=== PATIENT | male | born 1950 | race Two or more races ===

== ENCOUNTER 2024-03-23 13:43 | Inpatient (IN) | payer OTHER ==
[~2024-03-23] VITALS: Ht 152.4 cm; Wt 72.6 kg
[2024-03-23] MEDS ORDERED: ZESTRIL40 M1 PO (14:29)
[2024-03-23] MEDS ORDERED: AMLODIPINE-OLM1 EAC2 PO (14:29)
[2024-03-23] MEDS ORDERED: TAMS0.4C PO (14:30)
[2024-03-23] MEDS ORDERED: CHILDREN'S ASPI81 MG PO (14:30)
[2024-03-23] MEDS ORDERED: ALDACTONE25 MG PO (14:31)
--- NOTE | 2024-03-23 14:31 | NUR ---
PTE ALERTA Y ORIENTADO X3 REFIERE SER PTE DEL DR. STEW SMITH Y QUE EL MISMO LO ENVIA A KAMRAN DE EMERGENCIAS POR TENER SODIO EN [address] Y SE UBICA.
[2024-03-23] MEDS ORDERED: CRESTOR40 MG PO (14:32)
[2024-03-23] MEDS ORDERED: LANTUS SOL100 UNIT/1 (14:35)
[2024-03-23] MEDS ORDERED: HUMALOG100 UNIT/2 (14:35)
[2024-03-23] MEDS ORDERED: 0.9 % SODIUM CHLORIDE 500 ML IV ONE (15:15)
--- NOTE | 2024-03-23 15:46 | NUR ---
PTE ALERTA Y ORIENTADO X3, RN GALLITO ORIENTA SOBRE TX MEDICO Y REFIERE ACEPTAR. CANALIZA Y COLECTA MUESTRAS DE LAB BAJO MEDIDAS ASEPTICAS. HACE ENTREGA DE ENVASE PARA U/A Y REALIZA EKG WENDI ORDEN MEDICA
[2024-03-23 16:07] LABS: HEMATOCRIT 36.8 % (39.0-48.0); HEMOGLOBIN 12.7 g/dL (13-16.00); MEAN CELL VOLUME 78.1 fL (80.0-100.00); MEAN CORPUSCULAR HEMOGLOBIN 27.1 pg (27.00-32.0); MEAN CORPUSCULAR HGB CONC 34.6 g/dl (32.0-36.0); PLATELET COUNT 273 K/uL (150-450); RED CELL DISTRIBUTION WIDTH 13.5 % (11.5-14.5)
[2024-03-23 16:24] LABS: ALBUMIN 4.2 gm/dL (3.4-5.0); BILIRUBIN TOTAL 0.78 mg/dL (0.3-1.2); CALCIUM 9.6 mg/dL (8.5-10.1); CREATININE SERUM 1.77 mg/dL (0.70-1.30); GFR 38.11; GLOBULINA 3.2 G/DL (2.4-3.5); MAGNESIUM 1.8 mg/dL (1.8-2.4); PHOSPHOROUS 3.5 mg/dL (2.5-4.9); POTASSIUM 5.27 mEq/L (3.5-5.1); TOTAL PROTEIN 7.4 gm/dL (6.4-8.2)
[2024-03-23 16:30] LABS: URINE APPEARANCE Clear; URINE BILIRRUBIN Negative (NEGATIVE); URINE BLOOD Negative; URINE COLOR Yellow; URINE GLUCOSE Negative (NEGATIVE); URINE KETONE Trace (NEGATIVE); URINE LEUKOCYTE Negative; URINE NITRATE Negative; URINE PROTEIN Negative (NEGATIVE); URINE UROBILINOGEN 0.2 E.U./dl
[2024-03-23 16:34] LABS: URINE BACTERIA 6.2 uL (0.0-1933); URINE WBC 8.1 uL (0.0-23.2)
[2024-03-23 16:40] LABS: URINE EPITHELIAL CELLS 0.3 uL (0.0-38.8); URINE RBC 0.9 uL (0.0-20.8)
[2024-03-23] MEDS ORDERED: 0.9 % SODIUM CHLORIDE 1,000 ML IV SCH (21:45)
[2024-03-23] MEDS ORDERED: SODIUM POLYSTYRENE SULFONATE 15 G/4 TSP TSP PO SCH (22:13)
[2024-03-23] MEDS ORDERED: ACETAMINOPHEN 500 MG GEL..CAP PO PRN (22:15)
[2024-03-23] MEDS ORDERED: ONDANSETRON HCL 4 MG in 0.9 % SODIUM CHLORIDE 50 ML IV PRN (22:15)
[2024-03-23] MEDS ORDERED: INSULIN LISPRO 1,000 UNIT/10 ML UNITS SUBCUTANEO PRN (22:15)
[2024-03-23] MEDS ORDERED: DEXTROSE 50 % IN WATER 0.5 G/ML DISP.SYRIN IV PRN (22:15)
[2024-03-23 23:32] LABS: INR 1.04; PARTIAL THROMBOPLASTIN TIME 29.9 SECONDS (22.0-34.0); PROTHROMBIN TIME 11.3 SECONDS (9.0-11.5)
[2024-03-23 23:47] LABS: MAGNESIUM 1.6 mg/dL (1.8-2.4); PHOSPHOROUS 3.6 mg/dL (2.5-4.9)
[2024-03-24 00:58] VITALS: BP 139/83; O2SAT 99
[2024-03-24 07:05] LABS: CALCIUM 9.9 mg/dL (8.5-10.1); CREATININE SERUM 1.63 mg/dL (0.70-1.30); GFR 41.91; POTASSIUM 5.23 mEq/L (3.5-5.1); URIC ACID 4.1 mg/dL (3.5-8.5)
[2024-03-24 07:25] LABS: TSH 1.01 uIU/mL (0.358-3.74)
[2024-03-24 08:10] VITALS: BP 130/80; O2SAT 98
[2024-03-24] MEDS ORDERED: TAMSULOSIN HCL 0.4 MG CAP PO SCH (09:00)
[2024-03-24] MEDS ORDERED: ATORVASTATIN CALCIUM 40 MG TABLET PO SCH (09:00)
[2024-03-24] MEDS ORDERED: LISINOPRIL 40 MG TABLET PO SCH (09:00)
[2024-03-24] MEDS ORDERED: AMLODIPINE BESYLATE 5 MG TABLET PO SCH (09:00)
[2024-03-24 16:17] VITALS: BP 134/80; O2SAT 99
[2024-03-24] MEDS ORDERED: INSULIN GLARGINE,HUM.REC.ANLOG 1,000 UNITS/10 ML UNITS SUBCUTANEO SCH (17:00)
[2024-03-24 17:18] VITALS: BP 128/72
[2024-03-24 17:31] VITALS: BP 128/67
[2024-03-25 02:25] VITALS: BP 127/72
[2024-03-25 08:23] VITALS: BP 144/72; O2SAT 99
[2024-03-25] MEDS ORDERED: DOXAZOSIN MESYLATE 4 MG TABLET PO SCH (09:00)
[2024-03-25] MEDS ORDERED: PANTOPRAZOLE SODIUM 40 MG TABLET.DR PO SCH (09:00)
[2024-03-25] MEDS ORDERED: AMLODIPINE BESYLATE 5 MG TABLET PO SCH (09:00)
[2024-03-25] MEDS ORDERED: MAGNESIUM SULFATE/D5W 1GM/100ML PIGGYBAG IV NR (10:37)
[2024-03-25 15:12] LABS: CALCIUM 8.9 mg/dL (8.5-10.1); CREATININE SERUM 1.91 mg/dL (0.70-1.30); GFR 34.91; POTASSIUM 3.92 mEq/L (3.5-5.1)
[2024-03-25 18:10] VITALS: BP 157/80
[2024-03-25 19:29] LABS: CREATININE SERUM 1.77 mg/dL (0.8-1.3)
[2024-03-25] MEDS ORDERED: INSULIN GLARGINE,HUM.REC.ANLOG 1,000 UNITS/10 ML UNITS SUBCUTANEO STA (22:02)
[2024-03-26 01:41] VITALS: BP 114/55; O2SAT 97
[2024-03-26 07:19] LABS: ALBUMIN 3.1 gm/dL (3.4-5.0); CALCIUM 8.6 mg/dL (8.5-10.1); CREATININE SERUM 1.47 mg/dL (0.70-1.30); GFR 47.22; PHOSPHOROUS 3.1 mg/dL (2.5-4.9); POTASSIUM 4.11 mEq/L (3.5-5.1)
[2024-03-26] MEDS ORDERED: INSULIN LISPRO 1,000 UNIT/10 ML UNITS SUBCUTANEO SCH (08:00)
[2024-03-26] MEDS ORDERED: AMLODIPINE BESYL5 MG PO (08:23)
[2024-03-26] MEDS ORDERED: DOXAZOSIN MESYLA4 MG PO (08:24)
[2024-03-26] MEDS ORDERED: CRESTOR40 MG PO (08:24)
[2024-03-26] MEDS ORDERED: CHILDREN'S ASPI81 MG PO (08:25)
[2024-03-26] MEDS ORDERED: PANTOPRAZOLE SO40 MG PO (08:25)
[2024-03-26 09:21] VITALS: BP 138/71; O2SAT 96
[2024-03-26] MEDS ORDERED: INSULIN GLARGINE,HUM.REC.ANLOG 1,000 UNITS/10 ML UNITS SUBCUTANEO SCH (21:00)
== END 2024-03-26 11:34 | disposition home or self-care (01) | DRG 683 ==
LOC: ER 13:44 → SEC-K 22:13 → MEDI 03-24 14:24
PROVIDERS: General Practice; Nurse Practitioner Family; Specialist/Technologist, Other Nephrology; ADMIT Internal Medicine; ATTEND Internal Medicine
PROC: BT43ZZZ Ultrasonography of Bilateral Kidneys (ICD-10-PCS; principal; 2024-03-25)
DX: N17.9 Acute kidney failure, unspecified (principal); E87.1 Hypo-osmolality and hyponatremia; E87.5 Hyperkalemia; I25.10 Atherosclerotic heart disease of native coronary artery without angina pectoris; E11.9 Type 2 diabetes mellitus without complications; Z79.4 Long term (current) use of insulin; E78.5 Hyperlipidemia, unspecified; I12.9 Hypertensive chronic kidney disease with stage 1 through stage 4 chronic kidney disease, or unspecified chronic kidney disease; E11.22 Type 2 diabetes mellitus with diabetic chronic kidney disease; N18.9 Chronic kidney disease, unspecified

== ENCOUNTER 2024-10-22 21:21 | Emergency (ER) | payer OTHER ==
[~2024-10-22] VITALS: Ht 177.8 cm; Wt 74.4 kg
[~2024-10-22 21:21] MED LIST: ALDACTONE25 MG PO; AMLODIPINE BESYL5 MG PO; AMLODIPINE-OLM1 EAC2 PO; CHILDREN'S ASPI81 MG PO; CRESTOR40 MG PO; DOXAZOSIN MESYLA4 MG PO; HUMALOG100 UNIT/2; LANTUS SOL100 UNIT/1; PANTOPRAZOLE SO40 MG PO; TAMS0.4C PO; ZESTRIL40 M1 PO
[2024-10-22 22:46] VITALS: BP 121/71; O2SAT 99
[2024-10-23] MEDS ORDERED: RINGERS SOLUTION,LACTATED 500 ML IV STA (03:10)
[2024-10-23] MEDS ORDERED: INSULIN REGULAR, HUMAN 1,000 UNIT/10 ML UNITS IV STA (03:11)
[2024-10-23] MEDS ORDERED: INSULIN REGULAR, HUMAN 1,000 UNIT/10 ML UNITS SUBCUTANEO STA (03:12)
[2024-10-23 03:45] LABS: HEMATOCRIT 36.9 % (39.0-48.0); HEMOGLOBIN 12.2 g/dL (13-16.00); MEAN CELL VOLUME 82.4 fL (80.0-100.00); MEAN CORPUSCULAR HEMOGLOBIN 27.3 pg (27.00-32.0); MEAN CORPUSCULAR HGB CONC 33.1 g/dl (32.0-36.0); PLATELET COUNT 178 K/uL (150-450); RED BLOOD COUNT 4.49 M/uL (4.00-6.00); RED CELL DISTRIBUTION WIDTH 13.9 % (11.5-14.5)
[2024-10-23 04:01] LABS: CALCIUM 8.8 mg/dL (8.5-10.1); CREATININE SERUM 2.02 mg/dL (0.70-1.30); GFR 32.72; POTASSIUM 3.57 mEq/L (3.5-5.1)
== END 2024-10-23 06:08 | disposition home or self-care (01) ==
LOC: ER 21:21
DX: E11.65 Type 2 diabetes mellitus with hyperglycemia (principal); R53.81 Other malaise; I10 Essential (primary) hypertension; Z79.4 Long term (current) use of insulin

== ENCOUNTER 2024-11-20 13:33 | Inpatient (IN) | payer OTHER ==
[~2024-11-20] VITALS: Ht 177.8 cm; Wt 73.5 kg
[2024-11-20] MEDS ORDERED: 0.9 % SODIUM CHLORIDE 500 ML IV ONE (14:45)
[2024-11-20] MEDS ORDERED: INSULIN REGULAR, HUMAN 1,000 UNIT/10 ML UNITS IV ONE (15:00)
[2024-11-20 16:39] LABS: BASO % 0.7 % (0.1-1.2); EOS # 0.43 (0.04-0.54); EOS % 7.6 % (0.7-7.0); HEMATOCRIT 38.6 % (40.1-51.0); HEMOGLOBIN 12.9 g/dL (13.7-17.5); LYMPH # 1.32 (1.18-3.74); LYMPH % 23.3 % (19.3-53.1); MEAN CORPUSCULAR HEMOGLOBIN 26.3 pg (25.6-32.2); MONO # 0.43 (0.24-0.82); MONO % 7.6 % (4.7-12.5); NEUT # 3.44 (1.56-6.13); NEUT % 60.6 % (34.0-71.1); PLATELET COUNT 211 K/uL (163-369); RED CELL DISTRIBUTION WIDTH 13.2 % (11.6-14.4)
[2024-11-20 16:41] LABS: PH,URINE 6.5 (5.0-8.0); URINE APPEARANCE Clear; URINE BILIRRUBIN Negative (NEGATIVE); URINE BLOOD Trace; URINE COLOR Yellow; URINE KETONE Negative (NEGATIVE); URINE LEUKOCYTE Negative; URINE NITRATE Negative; URINE PROTEIN Negative (NEGATIVE); URINE UROBILINOGEN 0.2 E.U./dl
[2024-11-20 16:52] LABS: URINE BACTERIA 2.4 uL (0.0-1933); URINE EPITHELIAL CELLS 0.6 uL (0.0-38.8); URINE GLUCOSE >=1000 MG/DL (NEGATIVE); URINE RBC 0.5 uL (0.0-20.8); URINE WBC 1.1 uL (0.0-23.2)
[2024-11-20 17:00] LABS: INR 0.97; PARTIAL THROMBOPLASTIN TIME 25.3 SECONDS (22.0-34.0); PROTHROMBIN TIME 10.6 SECONDS (9.0-11.5)
[2024-11-20 17:05] LABS: ALBUMIN 3.9 gm/dL (3.4-5.0); BILIRUBIN TOTAL 0.37 mg/dL (0.3-1.2); CALCIUM 8.9 mg/dL (8.5-10.1); CREATININE SERUM 2.8 mg/dL (0.70-1.30); GFR 22.45; GLOBULINA 3.2 G/DL (2.4-3.5); MAGNESIUM 2.5 mg/dL (1.8-2.4); PHOSPHOROUS 2.9 mg/dL (2.5-4.9); POTASSIUM 3.91 mEq/L (3.5-5.1); TOTAL PROTEIN 7.1 gm/dL (6.4-8.2)
[2024-11-20] MEDS ORDERED: DEXTROSE 50 % IN WATER 0.5 G/ML DISP.SYRIN IV PRN (21:15)
[2024-11-20] MEDS ORDERED: 0.9 % SODIUM CHLORIDE 1,000 ML IV SCH (21:15)
[2024-11-20] MEDS ORDERED: INSULIN LISPRO 1,000 UNIT/10 ML UNITS SUBCUTANEO PRN (21:15)
[2024-11-20] MEDS ORDERED: ACETAMINOPHEN 500 MG GEL..CAP PO PRN (21:15)
[2024-11-20 22:25] LABS: MAGNESIUM 2.6 mg/dL (1.8-2.4); PHOSPHOROUS 2.8 mg/dL (2.5-4.9)
[2024-11-21] VITALS (8 sets, daily range): BP systolic 164–168; BP diastolic 70–88; O2SAT 96–100
[2024-11-21] MEDS ORDERED: AMLODIPINE BESYLATE 2.5 MG TABLET PO SCH ×2 (09:00→17:00)
[2024-11-21] MEDS ORDERED: FAMOTIDINE/PF 20 MG in 0.9 % SODIUM CHLORIDE 8 ML IV PUSH SCH (09:00)
[2024-11-21] MEDS ORDERED: ENOXAPARIN SODIUM 30 MG/0.3 ML SYRINGE SUBCUTANEO SCH (09:00)
[2024-11-21] MEDS ORDERED: ROSUVASTATIN CALCIUM 10 MG TABLET PO SCH ×2 (09:00→21:00)
[2024-11-22] VITALS: O2SAT 97
[2024-11-22 01:52] VITALS: BP 168/75; O2SAT 96
[2024-11-22 05:41] VITALS: O2SAT 97
[2024-11-22] MEDS ORDERED: INSULIN LISPRO 1,000 UNIT/10 ML UNITS SUBCUTANEO PRN (08:15)
[2024-11-22 08:24] LABS: ALBUMIN 3.4 gm/dL (3.4-5.0); CALCIUM 8.3 mg/dL (8.5-10.1); CREATININE SERUM 1.52 mg/dL (0.70-1.30); GFR 45.31; PHOSPHOROUS 3.4 mg/dL (2.5-4.9); POTASSIUM 3.71 mEq/L (3.5-5.1)
[2024-11-22 08:34] VITALS: BP 176/66
[2024-11-22] MEDS ORDERED: SODIUM CHLORIDE 0.45 % 1,000 ML IV SCH (10:00)
[2024-11-22] MEDS ORDERED: CHOLECALCIFEROL (VITAMIN D3) 5,000 UNITS TABLET PO NR (11:00)
[2024-11-22] MEDS ORDERED: RIVAROXABAN 10 MG TAB PO NR (12:00)
[2024-11-22 16:29] VITALS: BP 161/85; O2SAT 97
[2024-11-22] MEDS ORDERED: AMLODIPINE BESYLATE 5 MG TABLET PO SCH (17:00)
[2024-11-22] MEDS ORDERED: ROSUVASTATIN CALCIUM 20 MG TABLET PO SCH (21:00)
[2024-11-22] MEDS ORDERED: PANTOPRAZOLE SODIUM 40 MG TABLET.DR PO SCH (21:00)
[2024-11-22] MEDS ORDERED: ROSUVASTATIN CALCIUM 10 MG TABLET PO SCH (21:00)
[2024-11-23 01:34] VITALS: BP 148/90; O2SAT 96
[2024-11-23 08:12] VITALS: BP 150/70; O2SAT 98
[2024-11-23 08:16] LABS: CALCIUM 8.6 mg/dL (8.5-10.1); CREATININE SERUM 1.57 mg/dL (0.70-1.30); GFR 43.64; MAGNESIUM 1.9 mg/dL (1.8-2.4); PHOSPHOROUS 3.2 mg/dL (2.5-4.9); POTASSIUM 3.46 mEq/L (3.5-5.1)
[2024-11-23] MEDS ORDERED: INSULIN GLARGINE,HUM.REC.ANLOG 1,000 UNITS/10 ML UNITS SUBCUTANEO SCH (09:00)
[2024-11-23] MEDS ORDERED: RIVAROXABAN 10 MG TAB PO SCH (09:00)
[2024-11-23] MEDS ORDERED: CHOLECALCIFEROL (VITAMIN D3) 5,000 UNITS TABLET PO SCH (09:00)
[2024-11-23] MEDS ORDERED: Lantus 1000 UNITS/10 SUBCUTANEO (10:03)
[2024-11-23] MEDS ORDERED: AMLODIPINE BESYL5 MG PO (10:03)
[2024-11-23] MEDS ORDERED: CRESTOR40 MG PO (10:03)
[2024-11-23] MEDS ORDERED: PANTOPRAZOLE SO40 MG PO (10:03)
[2024-11-23] MEDS ORDERED: CHILDREN'S ASPI81 MG PO (10:03)
[2024-11-23] MEDS ORDERED: INSULIN LI100 UNIT/1 SUBCUTANEO (10:04)
[2024-11-23] MEDS ORDERED: VITAMIN D3125 MC2 PO (10:05)
[2024-11-23] MEDS ORDERED: LOVAZA PO (10:05)
[2024-11-23] MEDS ORDERED: HUMALOG100 UNIT/2 SUBCUTANEO (10:05)
[2024-11-23] MEDS ORDERED: [UNRECOGNIZED DRUG - OTHER] PO (10:05)
[2024-11-24] MEDS ORDERED: LOVAZA PO SCH (09:00)
[2024-11-24] MEDS ORDERED: [UNRECOGNIZED DRUG - OTHER] PO SCH (09:00)
== END 2024-11-23 11:20 | disposition home or self-care (01) | DRG 684 ==
LOC: ER 13:33 → MEDI 11-21 01:14
PROVIDERS: Emergency Medicine; General Practice; Specialist/Technologist, Other Nephrology; ADMIT Internal Medicine; ATTEND Internal Medicine
PROC: BT43ZZZ Ultrasonography of Bilateral Kidneys (ICD-10-PCS; principal; 2024-11-20)
DX: N17.9 Acute kidney failure, unspecified (principal); E11.65 Type 2 diabetes mellitus with hyperglycemia; E86.0 Dehydration; I12.9 Hypertensive chronic kidney disease with stage 1 through stage 4 chronic kidney disease, or unspecified chronic kidney disease; E11.22 Type 2 diabetes mellitus with diabetic chronic kidney disease; N18.30 Chronic kidney disease, stage 3 unspecified; E78.5 Hyperlipidemia, unspecified; Z79.84 Long term (current) use of oral hypoglycemic drugs